=== PATIENT | female | born 1990 | race Hispanic/Latino ===

== ENCOUNTER 2016-10-04 13:19 | Emergency (ER) | payer OTHER ==
[~2016-10-04] VITALS: Ht 160 cm; Wt 41.3 kg
[~2016-10-04 13:19] MED LIST: CYCLOBENZAPRINE10 M1 PO; IBUPROFEN800 M1 PO
[2016-10-04 13:24] VITALS: BP 121/77
--- NOTE | 2016-10-04 13:30 | ED INFLUENZA/URI COMPLAINT ---
History of Present Illness General Chief Complaint: Upper Respiratory Sx/Fever Stated Complaint: URI Source: patient, old records Exam Limitations: no limitations Vital Signs & Intake/Output Vital Signs & Intake/Output Vital Signs Date Time Temp Pulse Resp B/P Pulse O2 O2 Flow FiO2 Ox Delivery Rate 10/04 1324 98.7 112 18 121/77 100 Room Air Allergies Coded Allergies: No Known Allergies (07/23/16) Reconcile Medications Amoxicillin/Potassium Clav (Augmentin 875-125 Tablet) 875 MG-125 MG TABLET 1 TAB PO BID uri Cyclobenzaprine HCl 10 MG TABLET 1 TAB PO Q8P SPASMS Ibuprofen 800 MG TABLET 1 TAB PO TID pain Ondansetron HCl (Zofran) 4 MG TABLET 1 TAB SL Q6-8P PRN NAUSEA Polytrim (Polytrim Eye Drops) 10,000 UNIT-1 MG/ML DROPS 1 GTT OPH Q6 conjunctivitis Triage Note: 26 Y/O FEMALE C/O ALL OVER BODY ACHES, N/V, AND REDNESS TO L EYE. STATES HER DAUGHTER WAS TREATED FOR PINK EYE AND SHE THINKS SHE CAUGHT IT. BOTH EYES RED AND INFLAMMED WITH TEARING. PT ALSO C/O DECREASED APPETITE/PO INTAKE. AFEBRILE. Triage Nurses Notes Reviewed? yes Onset: Abrupt Duration: day(s): (4), constant Timing: recent history Severity: mild, moderate Severity Numbers: 4 Prior Episodes/Possible Cause: occassional episodes No Modifying Factors: none Associated Symptoms: cough, fever/chills, muscle aches, nasal congestion, nasal drainage, sore throat : No Patient currently breastfeeds: No HPI: 26-year-old female with no medical history presents emergency room complaining of generalized malaise bodyaches sore throat congestion nonproductive cough and left eye itching and redness for the past 4 days after she came back from the [place] area she reports her daughter has been home sick with similar symptoms. She does not wear glasses or contacts she denies any vision changes shortness of breath chest pain abdominal pain. She states she had one episode of vomiting after coughing yesterday she denies any nausea today she's had normal bowel movements. No rashes or skin. She has not taken anything for symptoms no modifying factors symptoms otherwise. (SOPHIA BOLIVAR,CATRACHITA) Past History Travel History Traveled to [place] past 21 day No Medical History Any Pertinent Medical History? none Neurological: NONE EENT: NONE Cardiovascular: NONE Respiratory: NONE Gastrointestinal: NONE Hepatic: NONE Renal: NONE Musculoskeletal: NONE Psychiatric: NONE Endocrine: NONE Blood Disorders: NONE Cancer(s): NONE CHEMISTRY MANAGER/Reproductive: NONE Surgical History Surgical History: none Psychosocial History What is your primary language Afghan Tobacco Use: Never used Family History Hx Contributory? No (CATRACHITA WASHBURN) Review of Systems Review of Systems Constitutional: Reports: see HPI. All Other Systems: Reviewed and Negative Comments Review of systems: See HPI, All other systems negative. Constitutional, no chills no fever, no malaise HEENT: no sore throat no congestion, no ear pain Cardiovascular: No chest pain , no palpitation Skin, no rashes, no change in skin Respiratory: no cough no sputum GI: No nausea no vomiting, no diarrhea, no bloating/constipation : No dysuria No hematuria Muscle skeletal: No joint pain, no joint swelling, no back pain, no neck pain, Neurologic: no headache Psych: No stress Heme/endocrine: No bruising no bleeding Immunology: No lymphadenopathy, (CATRACHITA WASHBURN) Physical Exam Physical Exam General Appearance: well developed/nourished, no apparent distress, alert, awake Ears, Nose, Throat: moist mucous membrane, hearing grossly normal, pharynx normal Comments: Well-developed well-nourished patient in no apparent distress. Head/Face: Atraumatic, no maxillary/frontal sinus tenderness, no facial swelling Eyes: PERRL, EOMI, LEFT conjunctival injection. No nystagmus no eyelid edema, no periorbital swelling or erythema Ear:External auditory canal and Tympanic membranes clear, no erythema, no FB. Nose: atraumatic.Normal inspection: No bleeding Throat: Moist mucous membranes.Pharynx normal. No pharyngeal erythema/exudate seen. No stridor/drooling or assymetry. No swelling or edema. Neck: Supple, no lymphadenopathy, FROM Back: FROM, Nontender Cardiovascular: Regular rate and rhythms no murmurs rubs Respiratory: No respiratory distress. Patient speaking in full complete sentences. Breath sounds clear to auscultation bilaterally: NO W/R/R Extremities: full range of motion Neuro: Alert and oriented x3 Skin: Warm & dry;No appreciable rash on exposed skin Psych: Mood affect normal, normal memory normal judgment. Core Measures Severe Sepsis Present: No Septic Shock Present: No (CATRACHITA WASHBURN) Progress Differential Diagnosis: influenza, otitis, pneumonia, pharyngitis, sinusitis Plan of Care: Prescription for Polytrim Augmentin Zofran provided advised clear liquids, Motrin as needed. Patient is outside the window for Tamiflu discussed with her that I do not believe swab testing is warranted at this time patient agreement with advised return anytime sooner if any concerns she feels comfortable with plan Initial ED EKG: none (CATRACHITA WASHBURN) Departure Departure Time of Disposition: 1355 Disposition: HOME OR SELF CARE Condition: Stable Clinical Impression Primary Impression: URI (upper respiratory infection) Secondary Impressions: Conjunctivitis Referrals: PATIENT HAS NO PRIMARY CARE DR (PCP/Family) Additional Instructions: Polytrim eyedrops as directed. Zofran as needed for nausea. Drink plenty of clear liquids bland diet advance diet as tolerated. Augmentin as directed. Follow-up with your primary care physician on Friday return anytime sooner with any concerns. Departure Forms: Customer Survey General Discharge Information Prescriptions: Current Visit Scripts Amoxicillin/Potassium Clav (Augmentin 875-125 Tablet) 1 TAB PO BID #14 TAB Polytrim (Polytrim Eye Drops) 1 GTT OPH Q6 #10 ML Ondansetron HCl (Zofran) 1 TAB SL Q6-8P PRN NAUSEA #10 TAB (CATRACHITA WASHBURN) PA/SPINNING MACHINE OPERATOR Co-Sign Statement Statement: ED Attending supervision documentation- [] I saw and evaluated the patient. I have also reviewed all the pertinent lab results and diagnostic results. I agree with the findings and the plan of care as documented in the PA's/SPINNING MACHINE OPERATOR's documentation. [X] I have reviewed the ED Record and agree with the PA's/SPINNING MACHINE OPERATOR's documentation. [] Additions or exceptions (if any) to the PAs/SPINNING MACHINE OPERATOR's note and plan are summarized below: [] (MART MORENO DO)
[2016-10-04] MEDS ORDERED: ZOFRAN4 M2 SL (13:58)
[2016-10-04] MEDS ORDERED: AUGMENTIN 875-1 EACH PO (13:58)
[2016-10-04] MEDS ORDERED: POLYTRIM EYE DR10 ML OPH (13:58)
== END 2016-10-04 14:06 ==
LOC: ERH 13:19
DX: J06.9 Acute upper respiratory infection, unspecified (principal); H10.9 Unspecified conjunctivitis